=== PATIENT | male | born 1965 | race Caucasian/White ===

== ENCOUNTER 2018-02-19 14:50 | Inpatient (IN) | payer OTHER ==
[~2018-02-19] VITALS: Ht 165.1 cm; Wt 83.4 kg
[2018-02-19 15:28] LABS: HEMATOCRIT 37.8 % (38.0-50.0); MCH 32.8 PG (29.0-34.0); MCV 88.5 FL (86-99); PLATELET COUNT 248 K/uL (156-360); RBC DIS.WIDTH-CV 13.6 % (11.8-14.6); RBC DIS.WIDTH-SD 43.9 % (39-53); RED BLOOD COUNT 4.27 M/uL (4.00-5.50); WHITE BLOOD COUNT 16.7 K/uL (4.1-10.2)
[2018-02-19 15:35] LABS: INTER. NORMALIZED RATIO 1.1
[2018-02-19 15:36] LABS: ALBUMIN 4.1 g/dL (3.2-4.8); CHLORIDE 82 mEq/L (99-109); POTASSIUM 3.4 mEq/L (3.7-5.4); SODIUM 123 mEq/L (136-147)
[2018-02-19 15:38] LABS: PTT 31.1 SEC (25-37)
[2018-02-19 15:39] LABS: GLUCOSE 114 mg/dL (70-99); TOTAL PROTEIN 7.1 g/dL (6.4-8.3)
[2018-02-19 15:41] LABS: TOTAL BILIRUBIN 0.5 mg/dL (0.0-1.0)
[2018-02-19 15:42] LABS: ALKALINE PHOSPHATASE 94 IU/L (3-129); SERUM ETHYL ALCOHOL < 10 mg/dL
[2018-02-19 15:43] LABS: CREATININE 3.8 mg/dL (0.6-1.3); GFR ESTIMATE (CALCULATED) 18 mL/min/ (58.99-99999)
[2018-02-19 15:44] LABS: AST (GOT) 12 IU/L (2-34); DIRECT BILIRUBIN 0.2 mg/dL (0.0-0.3); UREA NITROGEN (BUN) 108 mg/dL (9-23)
[2018-02-19 15:46] LABS: ALT (GPT) 15 IU/L (3-49); LIPASE 33 U/L (1.0-51.0)
[2018-02-19 15:52] LABS: TROP-I INTERPRETATION NEGATIVE; TROPONIN-I < 0.01 ng/mL (0.0-0.30)
[2018-02-19 16:04] LABS: APPEARANCE CLEAR ((CLEAR)); BILIRUBIN NEGATIVE; BLOOD NEGATIVE; COLOR STRAW ((YELLOW)); GLUCOSE (STRIP) 50; KETONES NEGATIVE; LEUKOCYTES NEGATIVE; NITRITE NEGATIVE; PROTEIN (STRIP) NEGATIVE; SPECIFIC GRAVITY 1.008 (1.000-1.030); UCUL ADDED? NO; UROBILINOGEN 0.2 MG/DL (0.2-1.0)
[2018-02-19 16:09] LABS: ATYPICAL LYMPHOCYTE 10.4 %; BASOPHILS 0.9 %; EOSINOPHIL ABS CT 0; LYMPHOCYTES 48.7 % (15.0-45.0); MONOCYTES 4.3 % (0-9.0); PLAT.SUFFICIENCY ADEQUATE; SEG.NEUTROPHILS 35.7 % (46.0-76.0)
[2018-02-19] MEDS ORDERED: GABAPENTIN300 MG PO (16:12)
[2018-02-19] MEDS ORDERED: LISINOPRIL20 MG PO (16:12)
[2018-02-19 16:13] LABS: AMPHETAMINE NEGATIVE (500 ng/mL); BARBITURATES NEGATIVE (200 ng/mL); BENZODIAZEPINES PRESUMPTIVE POSITIVE (150 ng/mL); BUPRENORPHINE NEGATIVE (10 ng/mL); COCAINE NEGATIVE (150 ng/mL); METHADONE NEGATIVE (200 ng/mL); METHAMPHETAMINE NEGATIVE (500 ng/mL); OPIATES (MORPHINE) NEGATIVE (100 ng/mL); OXYCODONE NEGATIVE (100 ng/mL); PHENCYCLIDINE NEGATIVE (25 ng/mL); PROPOXYPHENE NEGATIVE (300 ng/mL); THC CANNABINOIDS PRESUMPTIVE POSITIVE (50 ng/mL); TRICYCLIC ANTIDEPRESSANTS NEGATIVE (300 ng/mL)
[2018-02-19] MEDS ORDERED: HYDROCODON-ACE1 EAC7 PO (16:13)
[2018-02-19] MEDS ORDERED: ALEVE220 MG PO (16:14)
[2018-02-19] MEDS ORDERED: MULTI VITAMIN1 EACH PO (16:15)
[2018-02-19] MEDS ORDERED: VENTOLIN HFA18 GM IH (16:16)
[2018-02-19 16:41] LABS: BENZODIAZEPINES, URINE SCREEN Negative (200 ng/mL)
[2018-02-19 18:36] VITALS: BP 97/54
[2018-02-19 22:27] VITALS: BP 112/62
[2018-02-20 03:02] VITALS: BP 110/55
[2018-02-20 05:54] LABS: HEMATOCRIT 37.9 % (38.0-50.0); HEMOGLOBIN 13.5 G/DL (12.5-16.6); MCH 31.7 PG (29.0-34.0); MCHC 35.6 G/DL (30.0-36.0); PLATELET COUNT 265 K/uL (156-360); RBC DIS.WIDTH-CV 13.7 % (11.8-14.6); RBC DIS.WIDTH-SD 44.6 % (39-53); RED BLOOD COUNT 4.26 M/uL (4.00-5.50)
[2018-02-20 06:24] LABS: CHLORIDE 96 MEQ/L (99-109); GLUCOSE 144 mg/dL (70-99); UREA NITROGEN (BUN) 67 mg/dL (9-23)
[2018-02-20 06:25] LABS: CREATININE 2.1 MG/DL (0.6-1.3); GFR ESTIMATE (CALCULATED) 35 mL/min/ (58.99-99999); SODIUM 132 MEQ/L (136-147)
[2018-02-20 07:36] VITALS: BP 123/65
[2018-02-20 11:27] VITALS: BP 108/57
[2018-02-20] MEDS ORDERED: ENDOCET 5-3251 EACH PO (15:01)
[2018-02-20] MEDS ORDERED: NICOTINE PATCH1 EAC1 TD (15:01)
[2018-02-20] MEDS ORDERED: CLONAZEPAM0.5 MG PO (15:01)
[2018-02-20 15:05] LABS: HEMATOCRIT 36.8 % (38.0-50.0); MCH 31.9 PG (29.0-34.0); MCHC 35.3 G/DL (30.0-36.0); MCV 90.2 FL (86-99); PLATELET COUNT 239 K/uL (156-360); RBC DIS.WIDTH-SD 46.2 % (39-53); RED BLOOD COUNT 4.08 M/uL (4.00-5.50); WHITE BLOOD COUNT 21.6 K/uL (4.1-10.2)
[2018-02-20 15:29] VITALS: BP 130/72
[2018-02-20 15:31] LABS: CHLORIDE 100 MEQ/L (99-109); GFR ESTIMATE (CALCULATED) 52 mL/min/ (58.99-99999); GLUCOSE 113 mg/dL (70-99); POTASSIUM 3.8 MEQ/L (3.7-5.4); SODIUM 133 MEQ/L (136-147); UREA NITROGEN (BUN) 51 mg/dL (9-23)
[2018-02-20 15:33] LABS: CREATININE 1.5 MG/DL (0.6-1.3)
[2018-02-20 15:38] LABS: BASOPHIL (%) 0.1 % (0-1); EOSINOPHIL (%) 0 % (0-5); IMMATURE GRANULOCYTE (%) 0.4 % (0.0-0.7); LYMPHOCYTE COUNT 9.9 K/uL (1.0-2.8); MONOCYTE (%) 7.4 % (3-12); MONOCYTE COUNT 1.6 K/uL (0-0.8); NEUTROPHIL (%) 46.1 % (45-76); NEUTROPHIL COUNT 9.9 K/uL (1.8-6.4); PLAT.SUFFICIENCY ADEQUATE
[2018-02-20] MEDS ORDERED: TRAMADOL HCL50 MG PO (17:18)
== END 2018-02-20 17:44 | disposition home or self-care (01) | DRG 682 ==
LOC: EME 14:50 → EDOF 16:18 → 5EAST 16:18 → ENRESERV 16:23 → 5EAST 17:45
PROVIDERS: Emergency Medicine; Internal Medicine; Physician Assistant
DX: N17.9 Acute kidney failure, unspecified (principal); T46.4X5A Adverse effect of angiotensin-converting-enzyme inhibitors, initial encounter; E86.0 Dehydration; E87.6 Hypokalemia; E87.1 Hypo-osmolality and hyponatremia; J44.1 Chronic obstructive pulmonary disease with (acute) exacerbation; J96.01 Acute respiratory failure with hypoxia; I10 Essential (primary) hypertension; F17.210 Nicotine dependence, cigarettes, uncomplicated; F41.9 Anxiety disorder, unspecified; R11.2 Nausea with vomiting, unspecified; R19.7 Diarrhea, unspecified
CPT/HCPCS: 71045; 76770; 80048; 80048 91; 80076; 81003; 83690; 84484; 84999; 85025; 85027; 85610; 85730; 93005; 94640; 94640 76; 94799; 99202; 99281; 99284; G0480; J1644; J2930; J3480; J7030; Q0169